=== PATIENT | female | born 1965 | race Caucasian/White ===

== ENCOUNTER 2023-05-23 06:04 | Day surgery (SDC) | payer OTHER ==
[~2023-05-23] VITALS: Ht 162.6 cm; Wt 97.1 kg
[2023-05-23 06:59] VITALS: O2SAT 98
[2023-05-23] MEDS ORDERED: CEFAZOLIN SOD 2 GM in D5W 50 ML IV ONE (07:00)
[2023-05-23] MEDS ORDERED: NS 50 ML BAG IV ONE (07:25)
[2023-05-23] MEDS ORDERED: ONDANSETRON HCL 4 MG/2 ML VIAL ONE (07:25)
[2023-05-23] MEDS ORDERED: DEXAMETHASONE SOD PHOSPHATE 4 MG/ML VIAL ONE (07:25)
[2023-05-23] MEDS ORDERED: ePHEDrine sulfate 50 MG/ML VIAL ONE (07:25)
[2023-05-23] MEDS ORDERED: ISOFLURANE 15 MIN GAS INH ONE (07:25)
[2023-05-23] MEDS ORDERED: fentaNYL CITRATE/PF 100 MCG/2 ML AMP ONE (07:25)
[2023-05-23] MEDS ORDERED: BUPIVACAINE /PF 0.25% 30 ML VIAL INJ ONE (07:25)
[2023-05-23] MEDS ORDERED: SUGAMMADEX SODIUM 200 MG/2 ML VIAL IV ONE (07:25)
[2023-05-23] MEDS ORDERED: LR 1,000 ML IV.SOLN IV ONE (07:25)
[2023-05-23] MEDS ORDERED: PROPOFOL 200MG/ 20ML VIAL (DIPRIVAN) IV ONE (07:25)
[2023-05-23] MEDS ORDERED: NS IRRIG SOLN 1000 ML IR ONE (07:25)
[2023-05-23] MEDS ORDERED: MIDAZOLAM HCL/PF 2 MG/2 ML SYRINGE ONE (07:25)
[2023-05-23] MEDS ORDERED: KETOROLAC TROMETHAMINE 30 MG VIAL ONE (07:25)
[2023-05-23] MEDS ORDERED: LABETALOL 100 MG/ 20ML VIAL IVP PRN (08:00)
[2023-05-23] MEDS ORDERED: METOCLOPRAMIDE HCL 10 MG/2 ML VIAL IVP PRN (08:00)
[2023-05-23] MEDS ORDERED: MEPERIDINE HCL/PF 25 MG/ML DISP.SYRIN IVP PRN (08:00)
[2023-05-23] MEDS ORDERED: HYDROmorphone 1 MG/ML INJ. CARTRIDGE IVP PRN ×2 (08:00)
[2023-05-23] MEDS ORDERED: hydrALAZINE HCL 20 MG/ML VIAL IVP PRN (08:00)
[2023-05-23] MEDS ORDERED: LR 1,000 ML IV SCH (08:00)
[2023-05-23] MEDS ORDERED: ACETAMINOPHEN I.V. 1000 MG 100 ML IV ONE (08:13)
[2023-05-23] MEDS ORDERED: HYDROcodone/ACETAMIN 5-325 MG TAB (NORCO/ VICODIN) PO PRN ×2 (09:00)
[2023-05-23] MEDS ORDERED: D5/0.45 NS 1,000 ML IV SCH ×2 (09:00→13:00)
[2023-05-23 11:53] VITALS: BP_SYST 123; PULSE 56; RESP 16; TEMP 97.3
== END 2023-05-23 11:37 | disposition home or self-care (01) ==
LOC: SDS 06:04 → SMU 06:05 → SDS 11:37
PROVIDERS: ATTEND Colon & Rectal Surgery
DX: K80.10 Calculus of gallbladder with chronic cholecystitis without obstruction (principal); I10 Essential (primary) hypertension; E11.9 Type 2 diabetes mellitus without complications; E78.00 Pure hypercholesterolemia, unspecified; Z79.84 Long term (current) use of oral hypoglycemic drugs; Z79.899 Other long term (current) drug therapy
CPT/HCPCS: 87081; 47563; 88304; 74300; 82962; J3490 ×2; J0690; J1100; J1885; J3465; J2405; J2704; J3010; Q9967; J7060; J7120; C1758; C1727; J0131; 76000